=== PATIENT | male | born 1995 | race Caucasian/White ===

== ENCOUNTER 2018-09-27 16:42 | Emergency (ER) | payer SELFPAY ==
[2018-09-27 16:58] VITALS: BP 147/93
--- NOTE | 2018-09-27 17:13 | ED ---
GI/ HPI - HPI Summary HPI Summary: 23 yr old male with the complaint of nausea and vomiting times one today, mild epigastric pain. Onset this morning. The patient drank ETOH last night and felt like he has had a bad hangover all day. Earlier he felt like he had a panic attack, and then he developed tingling in both hands and both feet and his hands got all spasms and tight. He feels better now. - History of Current Complaint Chief Complaint: [facility]CG[facility] Time Seen by Provider: 09/27/18 17:01 Stated Complaint: VOMITING/SHAKEY/? DEHYDRATED Pain Intensity: 2 - Allergy/Home Medications Allergies/Adverse Reactions: Allergies Allergy/AdvReac Type Severity Reaction Status Date / Time No Known Allergies Allergy Verified 09/27/18 16:52 Home Medications: Home Medications NK [No Home Medications Reported] 09/27/18 [History Confirmed 09/27/18] PMH/Surg Hx/FS Hx/Imm Hx Infectious Disease History: No Infectious Disease History: Denies: Traveled Outside the [place] in Last 30 Days - Family History Known Family History: Positive: None - Social History Occupation: Employed Full-time Alcohol Use: Weekly Alcohol Amount: 1-2/WEEK Substance Use Type: Reports: Marijuana Substance Use Comment - Amount & Last Used: DAILY; YESTERDAY Smoking Status (MU): Never Smoked Tobacco Review of Systems Constitutional: Negative Positive: Vomiting, Nausea All Other Systems Reviewed And Are Negative: Yes Physical Exam Triage Information Reviewed: Yes Vital Signs On Initial Exam: Initial Vitals Temp Pulse Resp BP Pulse Ox 98.4 F 78 17 147/93 100 09/27/18 16:53 09/27/18 16:53 09/27/18 16:53 09/27/18 16:53 09/27/18 16:53 Vital Signs Reviewed: Yes Appearance: Positive: Well-Appearing, No Pain Distress Skin: Positive: Warm, Skin Color Reflects Adequate Perfusion Head/Face: Positive: Normal Head/Face Inspection Eyes: Positive: EOMI ENT: Positive: Normal ENT inspection Neck: Positive: Nontender Respiratory/Lung Sounds: Positive: Clear to Auscultation, Breath Sounds Present Cardiovascular: Positive: RRR. Negative: Murmur Abdomen Description: Positive: Nontender Musculoskeletal: Positive: Strength/ROM Intact Neurological: Positive: Sensory/Motor Intact, Alert, Oriented to Person Place, Time, CN Intact II-III, Normal Gait, Speech Normal Psychiatric: Positive: Normal - [place] Coma Scale Best Eye Response: 4 - Spontaneous Best Motor Response: 6 - Obeys Commands Best Verbal Response: 5 - Oriented Coma Scale Total: 15 Diagnostics - Vital Signs Vital Signs Temp Pulse Resp BP Pulse Ox 09/27/18 16:53 98.4 F 78 17 147/93 100 - Laboratory Lab Statement: Any lab studies that have been ordered have been reviewed, and results considered in the medical decision making process. GIGU Course/Dx - Course Course Of Treatment: 23 yr old male with post ETOH gastritis. He is advised to go to the ER for further evaluation and labs. The patient verbalized that his was going to drive him and declined an ambulance. - Diagnoses Provider Diagnoses: [place], Gastritis, Hypertension Discharge - Sign-Out/Discharge Documenting (check all that apply): Patient Departure All imaging exams completed and their final reports reviewed: No Studies - Discharge Plan Condition: Good Disposition: HOME-RECOMMEND TO ED Patient Education Materials: Acute Nausea and Vomiting (ED), Hypertension (ED) , Carpopedal Spasm (ED) Referrals: [facility] [[place]] - 1 Day No Primary Care Phys,NOPCP [Primary Care Provider] - Additional Instructions: You should go to the ER immediately after leaving here for further work up and testing. YOu have been offered an ambulance, but have stated your is driving you. - Billing Disposition and Condition Condition: GOOD Disposition: Home-Recommend to ED
== END 2018-09-27 17:14 | disposition home health service (06) ==
LOC: UCCORT 16:42
DX: K29.20 Alcoholic gastritis without bleeding (principal); R29.0 Tetany; I10 Essential (primary) hypertension
CPT/HCPCS: 99202; G0463